=== PATIENT | female | born 1990 | race Caucasian/White ===

== ENCOUNTER 2023-09-23 08:12 | Day surgery (SDC) | payer BC ==
[2023-09-20 10:20] LABS: Urine Bacteria None Seen /hpf (None Seen); Urine WBC None Seen /hpf (0 - 5)
[2023-09-20 10:26] LABS: Basophils # (auto) 0.1 10 ^3/uL (0-0.2); Basophils % (auto) 0.8 % (0.0-2.0); Eosinophils # (auto) 0.4 10 ^3/uL (0-0.8); Eosinophils % (auto) 3.8 % (0.0-7.0); Hematocrit 37.3 % (36.0-46.0); Hemoglobin 12.5 g/dL (12.2-16.2); Lymphocytes # (auto) 2.3 10 ^3/uL (0.4-5.4); Lymphocytes % (auto) 24.5 % (10.0-50.0); Mean Corpuscular Hgb Conc. 33.5 g/dL (32.0-36.0); Mean Corpuscular Volume 77.4 fL (80.0-100.0); Monocytes # (auto) 0.7 10 ^3/uL (0-1.3); Monocytes % (auto) 7.1 % (0.0-12.0); Neutrophils % (auto) 63.8 % (37.0-80.0); Red Blood Cells 4.82 10^6/uL (4.0-5.20); Red Cell Distribution Width 17.1 % (11.8-14.3); White Blood Cell 9.5 10^3/uL (4.4-10.8)
[2023-09-20 10:41] LABS: INR 1.04 (0.9-1.15); Partial Thromboplastin Time 29.8 SEC (24.5-34.5)
[2023-09-20 10:51] LABS: Urine Blood Negative /uL (Negative); Urine Clarity Clear (Clear); Urine Protein, UAD Negative (Negative); Urine Specific Gravity 1.004 (1.001-1.035); Urine Urobilinogen Normal (Negative); Urine pH 7.5 (5.0-9.0)
[2023-09-20 10:54] LABS: Urine Color STRAW (Yellow)
[2023-09-20 11:19] LABS: Alanine Aminotransferase 13 U/L (7-40); Alkaline Phosphatase 67 U/L (46-116); Anion Gap 6 (5-15); Calcium 9.6 mg/dL (8.7-10.4); Carbon Dioxide 25 mmol/L (20-30); Chloride 107 mmol/L (98-107); Glucose 95 mg/dL (74-106); Potassium 4.8 mmol/L (3.5-5.1); Sodium 138 mmol/L (136-145)
[2023-09-20 11:20] LABS: Albumin 4.5 g/dL (3.2-4.8); Aspartate Aminotransferase 22 U/L (13-40)
[2023-09-20 11:21] LABS: Bilirubin, Total 0.4 mg/dL (0.2-1.0); Total Protein 7.1 g/dL (5.7-8.2)
[2023-09-20 11:42] LABS: BUN/Creatinine Ratio 6.4 (10.0-20.0); Blood Urea Nitrogen < 5 mg/dL (9-23)
[~2023-09-23] VITALS: Ht 157.5 cm; Wt 67.6 kg
[~2023-09-23 08:12] MED LIST: CETI10TA2 PO
[2023-09-23] MEDS ORDERED: DexAMETHasone SOD PHOS 10MG/1ML VIAL INJ ONE (08:45)
[2023-09-23] MEDS ORDERED: PROPOFOL 10 MG/ML 20 ML IV ONE (08:45)
[2023-09-23] MEDS ORDERED: LIDOCAINE 1% INJ PF 5ML AMP ONE (08:45)
[2023-09-23] MEDS ORDERED: KETOROLAC TROMETH 30 MG/ML 1ML VIAL ONE (08:45)
[2023-09-23] MEDS ORDERED: GLYCOPYRROLATE 0.2 MG/ML 1ML VIAL ONE (08:45)
[2023-09-23] MEDS ORDERED: ONDANSETRON HCL 4 MG/2 ML VIAL ONE (08:45)
[2023-09-23] MEDS ORDERED: fentaNYL CITRATE 100 MCG/2 ML VL ONE (08:48)
[2023-09-23] MEDS ORDERED: KETAMINE 50mg/ML 1ml syringe ONE (08:48)
[2023-09-23] MEDS ORDERED: CELECOXIB 100 MG CAP ONE (09:00)
[2023-09-23] MEDS ORDERED: ACETAMINOPHEN IV 100 ML IV ONE (09:00)
[2023-09-23] MEDS ORDERED: GABAPENTIN 400 MG CAP ONE (09:00)
[2023-09-23] MEDS ORDERED: ceFAZolin 2 GM/D5W50ml 50 ML IV ONE (09:04)
[2023-09-23] MEDS ORDERED: HYDR-4902 PO (09:11)
[2023-09-23] MEDS ORDERED: ZOFR4T PO (09:11)
[2023-09-23] MEDS: ACETAMINOPHEN IV 1000 MG/100ML (10MG/ML) IV ONE (09:20)
[2023-09-23] MEDS: CELECOXIB 100 MG CAP PO ONE (09:20)
[2023-09-23 10:06] VITALS: PULSE 80; RESP 15; TEMP 98; O2SAT 98
[2023-09-23] MEDS ORDERED: ONDANSETRON HCL 4 MG/2 ML VIAL IV PRN ×2 (10:15)
[2023-09-23] MEDS ORDERED: HYDROmorphone HCL 2 MG/ML VL/or syr IV PRN (10:15)
[2023-09-23] MEDS ORDERED: ePHEDrine SULFATE 50 MG/ML AMP IV PRN (10:15)
[2023-09-23] MEDS ORDERED: hydrALAZINE HCL 20 MG/ML VL IV PRN (10:15)
[2023-09-23] MEDS ORDERED: FLUMAZENIL 0.1 MG/ML INJ 10ML MDV IV PRN (10:15)
[2023-09-23] MEDS ORDERED: LACTATED RINGER'S 1,000 ML IV SCH (10:15)
[2023-09-23] MEDS ORDERED: NALOXONE HCL 0.4 MG/ML VIAL IV PRN (10:15)
[2023-09-23] MEDS ORDERED: fentaNYL CITRATE 100 MCG/2 ML VL IV PRN (10:15)
[2023-09-23] MEDS: oxyCODONE HCL 5MG TAB PO PRN (10:31)
[2023-09-23 10:40] VITALS: BP 117/66; PULSE 57; RESP 15; O2SAT 100
[2023-09-23] MEDS: GABAPENTIN 400 MG CAP PO ONE (14:08)
== END 2023-09-23 10:50 | disposition home or self-care (01) ==
LOC: SUR 08:12
PROVIDERS: ATTEND Obstetrics & Gynecology
DX: N93.8 Other specified abnormal uterine and vaginal bleeding (principal); N85.8 Other specified noninflammatory disorders of uterus; J45.909 Unspecified asthma, uncomplicated; E66.3 Overweight; Z68.27 Body mass index [BMI] 27.0-27.9, adult; Z79.899 Other long term (current) drug therapy; Z98.890 Other specified postprocedural states; Z91.040 Latex allergy status
CPT/HCPCS: 36415; 58558; 80053; 81001; 81025; 84702; 85025; 85610; 85730; 86850; 86900; 86901; 88305; J0131; J0690; J1100; J1885; J2405; J2704

== ENCOUNTER → 2024-01-31 | Outpatient (CLI) | payer BC ==
[~2024-01-31] MED LIST changes: +HYDR-4902 PO; +ZOFR4T PO
== END | disposition home or self-care (01) ==
LOC: LAB 07:12
PROVIDERS: ATTEND Internal Medicine
CPT/HCPCS: 36415; 82565; 84520